=== PATIENT | female | born 1990 | race Two or more races ===

== ENCOUNTER 2021-02-13 15:50 | Observation (INO) | payer OTHER ==
[2021-02-13] MEDS ORDERED: PREN-96 PO (16:19)
== END 2021-02-13 16:58 | disposition home or self-care (01) ==
LOC: EDBD 15:50 → LDRP 15:50
PROVIDERS: ADMIT Obstetrics & Gynecology; ATTEND Obstetrics & Gynecology
DX: O26.893 Other specified pregnancy related conditions, third trimester (principal); R10.9 Unspecified abdominal pain; O24.419 Gestational diabetes mellitus in pregnancy, unspecified control; Z3A.32 32 weeks gestation of pregnancy
CPT/HCPCS: 59025; 81002; 82948; 82962; 94760; G0378